=== PATIENT | female | born 1980 | race Caucasian/White ===

== ENCOUNTER → 2021-06-22 14:46 | Outpatient (BNVA) | payer BC, SELFPAY | PROVIDERS: PCP Family Medicine; Visit Provider Nurse Practitioner Family | DX: Z20.822 Contact with and (suspected) exposure to COVID-19 (principal) | CPT/HCPCS: 87635 ==

== ENCOUNTER 2025-10-05 11:23 | Outpatient (RCR) | payer OTHER, SELFPAY | END 2025-10-17 23:59 | disposition home or self-care (01) | LOC: MPT 11:23 | PROVIDERS: Visit Provider Orthopaedic Surgery | DX: M77.11 Lateral epicondylitis, right elbow (principal); M25.521 Pain in right elbow | CPT/HCPCS: 97110; 97140; 97162 ==

== ENCOUNTER 2025-10-27 14:19 | Outpatient (RCR) | payer OTHER, SELFPAY | END 2025-11-17 23:59 | disposition home or self-care (01) | LOC: MPT 14:19 | PROVIDERS: Visit Provider Orthopaedic Surgery | DX: M77.11 Lateral epicondylitis, right elbow (principal) | CPT/HCPCS: 97110 ==